=== PATIENT | male | born 1935 | race Caucasian/White ===

== ENCOUNTER 2017-07-08 09:53 | Emergency (ER) | payer MEDICARE, OTHER, SELFPAY ==
[2017-07-08 09:54] VITALS: BP 140/83; PULSE 70; RESP 16; TEMP 36.5; O2SAT 99; BMI 22.3
[2017-07-08 10:13] VITALS: BP 157/90; PULSE 74; RESP 16; O2SAT 97; O2SAT 98
--- NOTE | 2017-07-08 10:13 | RAD_ITS ---
STUDY: X-RAY CHEST REASON FOR EXAM: Male, 82 years old. Chest pain. Shortness of breath. TECHNIQUE: Single frontal view of the chest. COMPARISON: None. FINDINGS: The lungs are hyperexpanded and there are bullous changes compatible with COPD. There is no demonstrated pleural abnormality. There is borderline cardiomegaly. Normal mediastinum and froylan. Normal visualized pulmonary arteries. Normal visualized aortic arch and descending thoracic aorta. Normal visualized thoracic spine. Normal visualized ribs, clavicles, and shoulders. There is no demonstrated abnormality of the visualized soft tissue structures of the upper abdomen. RAD/Chest 1 View (Portable) IMPRESSION: Borderline cardiomegaly with hyperexpansion and bullous change compatible with COPD. No acute pathology. Electronically Signed: Antwon Jones MD at 10:44 EDT , Service support ,
--- NOTE | 2017-07-08 10:13 | EKG12_ITS ---
Test Reason : WEAKNESS Blood Pressure : / mmHG Vent. Rate : 068 BPM Atrial Rate : 068 BPM P-R Int : 178 ms QRS Dur : 080 ms QT Int : 414 ms P-R-T Axes : 072 040 061 degrees QTc Int : 440 ms Sinus rhythm with Premature supraventricular complexes Otherwise normal ECG Confirmed by IGLESIA COX, BEATRICE ([id number]), photographic editor KAROLYN DELONG ([id number] on 07/10/2017 2:10:39 PM Referred By: YANNICK Confirmed By:BEATRICE PAREKH MD
--- NOTE | 2017-07-08 10:18 | NURSING ---
NO OLD EKGS
[2017-07-08 10:34] LABS: Absolute Neutrophil Count 3.7 X10^3/uL (2.0-7.7); Basophil# 0.02 X10^3/uL; Basophil% 0.3 % (0-1); Eosinophil# 0.24 X10^3/uL; Eosinophils% 3.7 % (0-5); Hematocrit 40.8 % (40-54); Hemoglobin 13.6 g/dl (13.0-16.5); Lymphocyte % 18.6 % (19-41); Mean Corp Hgb Conc 33.3 g/gl (32-36); Mean Corpuscular Hgb 32.2 pg (27.0-32.0); Mean Corpuscular Volume 96.5 fL (80-94); Mean Platelet Vol. 10.2 fl (6.2-12.0); Monocyte# 1.25 X10^3/uL; Monocyte% 19.3 % (0-10); Neutrophil # 3.74 X10^3/uL (2.7-7.7); Neutrophil % 57.9 % (47-70); Platelet Count 155 K/mm3 (150-450); RBC Distribution Width CV 13.6 % (11.6-14.6); RBC Distribution Width SD 47.2 fl (35.1-43.9); Red Blood Count 4.23 M/mm3 (4.6-6.2); White Blood Count 6.5 K/mm3 (4.4-11.0)
[2017-07-08 10:35] LABS: POSITIVE COUNT NO; POSITIVE DIFFERENTIAL NO; POSITIVE MORPHOLOGY NO
[2017-07-08 10:37] LABS: International Normalized Ratio 3.2; Prothrombin Time (Protime)PT. 33.3 SECONDS (11.7-14.9)
[2017-07-08 10:38] LABS: Partial Thromboplast Time 47.3 Seconds (24.1-36.2)
[2017-07-08 10:40] LABS: Anion Gap 4 (5-15); BUN 15 mg/dL (7-18); BUN/Creat Ratio 11.5 RATIO (10-20); Calcium,Total 8.8 mg/dL (8.5-10.1); Chloride 107 mmol/L (98-107); Creatinine, Serum 1.31 mg/dL (0.70-1.30); EST Glomerular Filtration Rate 56 mL/min (>60); Est Glom Filt Rate - Afr Amer 68 mL/min (>60); Glucose 100 mg/dL (74-106); Potassium 4.1 mmol/L (3.5-5.1); Sodium Level 141 mmol/L (136-145)
[2017-07-08 12:53] VITALS: BP 157/90; PULSE 73; RESP 16; O2SAT 98
[2017-07-08 13:04] LABS: Bacteria 0 SEEN /hpf (None Seen); Mucous, Urine 0 SEEN /hpf (<or=2+); Red Blood Cells-Urine 0 SEEN /hpf (0-5); White Blood Cells 0 SEEN /hpf (0-5)
[2017-07-08 13:05] LABS: Color, Urine Yellow (Yellow); Glucose, Dipstick Normal (Normal); Ketone-Dipstick Negative (Negative); Leukocyte Esterase-Dipstick Negative /ul (Negative); Nitrite-Dipstick Negative (Negative); Occult Blood-Urine Negative /ul (Negative); Protein-Dipstick Negative (Negative); Specific Gravity, Urine 1.005 (1.002-1.030); Urine Bilirubin Dipstick Negative (Negative); Urine Clarity Clear (Clear); Urine Urobilinogen Normal (Normal)
[2017-07-08 13:21] LABS: Squamous Epithelial Cells - UA 0-5 SEEN /hpf (0-5)
--- NOTE | 2017-07-08 13:30 | ED.VISSUMM ---
- ER Visit Summary Date of Service: 07/08/17 Chief Complaint: Weakness History of Present Illness: The patient is a 82 M presenting for evaluation secondary to weakness. Patient states that over the course of the last 2 weeks he has been feeling generally weak. He states that he has an underlying history of COPD and smoking and typically has exertional dyspnea at baseline, but feels that is getting mildly worse. Patient states that he has been having some intermittent heart palpitations. He also states that he has been feeling intermittently lightheaded. He denies any fevers chest pain cough nausea vomiting diarrhea or urinary symptoms. He denies any laterality to his weakness. Denies any visual changes or numbness. Review of systems otherwise negative. Physical Examination: Vital signs are within normal limits, patient is afebrile. General: Patient is well-nourished well-developed and in no acute distress. Head: Normocephalic, atraumatic Eyes: Pupils equal round and reactive bilaterally, extra occular motion intact bialterally ENT: Moist mucous membranes Neck: Supple, no lymphadenopathy, no JVD, no meningismus CVS: Heart regular rate and rhythm, radial pulses 2+ bilaterally Resp: Respirations nondistressed, lung sounds clear bilaterally Abdomen: Soft, nontender, nondistended, no palpable masses, normal bowel sounds Back: Nontender Extremities: Nontender, atraumatic, active full range of motion, mild peripheral edema noted in the legs right being greater than the left, +1. Skin: warm, no rashes, no petechia Neuro: Alert and oriented x 4, CN 2-12 intact, no lateralizing neurological defecits, NIH stroke scale is 0 Psyc: Normal affect Test Results: Sinus rhythm at [address] segments, normal T waves, normal intervals. Occasional PACs noted. No evidence of acute ischemia or arrhythmia. CBC unremarkable, chemistry shows creatinine 1.3, INR mildly supratherapeutic at 3.2, urinalysis negative, chest x-ray per radiology shows emphysematous changes. Emergency Department Course and Treatment: Patient presented for evaluation secondary to generalized weakness, palpitations, and mild exertional dyspnea. Patient's workup was found to be negative as noted above. This point I do not see any need for the patient to be admitted to the hospital. I did contact patient's primary care physician to ensure close follow-up. Patient was comfortable with this disposition and he was discharged. Disposition: Discharge Impression: 1. Generalized weakness This note was generated with [employer] dictation software. It may contain incorrect words, spelling, and punctuation that were not noted in review of the chart prior to signing ED Disposition - Plan for ED Patient: Disposition: Home or Assisted Living Chief Complaint: Weakness Diagnosis: Generalized weakness Instructions: ED Weakness [facility] Referrals: Emma Meredith MD [Primary Care Provider] - 3-5 Days
[2017-07-08 13:45] VITALS: BP 155/80; PULSE 74; RESP 20; O2SAT 95
== END 2017-07-08 13:46 | disposition home or self-care (01) ==
PROVIDERS: Emergency Provider Emergency Medicine; Family Provider Internal Medicine; PCP Internal Medicine
DX: R53.1 Weakness (principal); R42 Dizziness and giddiness; R60.0 Localized edema; I49.3 Ventricular premature depolarization; J44.9 Chronic obstructive pulmonary disease, unspecified; I25.10 Atherosclerotic heart disease of native coronary artery without angina pectoris; I10 Essential (primary) hypertension; E78.00 Pure hypercholesterolemia, unspecified; Z79.01 Long term (current) use of anticoagulants; Z79.899 Other long term (current) drug therapy; F17.200 Nicotine dependence, unspecified, uncomplicated
CPT/HCPCS: 71045; 80048; 81001; 84484; 85025; 85610; 85730; 93005; 99284; A4216

== ENCOUNTER → 2018-06-25 | Outpatient (CLI) | payer MEDICARE, OTHER, SELFPAY ==
[2018-06-25 13:51] LABS: International Normalized Ratio 2.2; Prothrombin Time (Protime)PT. 24.4 SECONDS (11.7-14.9)
== END | disposition home or self-care (01) ==
LOC: LABSPEC 13:14
PROVIDERS: Family Provider Internal Medicine; PCP Internal Medicine; Referring Provider Physician Assistant; Visit Provider Physician Assistant
DX: I48.2 Chronic atrial fibrillation (principal); Z79.01 Long term (current) use of anticoagulants
CPT/HCPCS: 85610

== ENCOUNTER → 2018-12-29 11:53 | Outpatient (CLI) | payer MEDICARE, OTHER, SELFPAY ==
[2018-12-29 12:13] LABS: International Normalized Ratio 2.5; Prothrombin Time (Protime)PT. 26.9 SECONDS (11.7-14.9)
== END ==
PROVIDERS: Family Provider Internal Medicine; PCP Internal Medicine; Visit Provider Family Medicine
DX: I48.20 Chronic atrial fibrillation, unspecified (principal)
CPT/HCPCS: 85610

== ENCOUNTER → 2019-02-17 14:53 | Outpatient (CLI) | payer MEDICARE, OTHER, SELFPAY ==
[2019-02-17 15:15] LABS: International Normalized Ratio 2.6; Prothrombin Time (Protime)PT. 27.8 SECONDS (11.7-14.9)
== END ==
PROVIDERS: Family Provider Internal Medicine; PCP Internal Medicine; Referring Provider Family Medicine; Visit Provider Family Medicine
DX: I48.20 Chronic atrial fibrillation, unspecified (principal)
CPT/HCPCS: 85610

== ENCOUNTER → 2019-07-01 | Outpatient (CLI) | payer MEDICARE, OTHER, SELFPAY ==
[2019-07-01 10:15] LABS: International Normalized Ratio 3.1; Prothrombin Time (Protime)PT. 31.7 SECONDS (11.7-14.9)
== END | disposition home or self-care (01) ==
LOC: LABSPEC 09:58
PROVIDERS: PCP Internal Medicine; Referring Provider Family Medicine; Visit Provider Family Medicine
DX: I48.20 Chronic atrial fibrillation, unspecified (principal)
CPT/HCPCS: 85610

== ENCOUNTER → 2019-07-08 | Outpatient (CLI) | payer MEDICARE, OTHER, SELFPAY ==
[2019-07-08 09:16] LABS: International Normalized Ratio 1.9; Prothrombin Time (Protime)PT. 21.4 SECONDS (11.7-14.9)
== END | disposition home or self-care (01) ==
PROVIDERS: Visit Provider Family Medicine
DX: I48.20 Chronic atrial fibrillation, unspecified (principal)
CPT/HCPCS: 85610

== ENCOUNTER → 2019-11-04 | Outpatient (CLI) | payer MEDICARE, OTHER, SELFPAY ==
[2019-11-04 15:52] LABS: International Normalized Ratio 2.2; Prothrombin Time (Protime)PT. 23.6 SECONDS (11.7-14.9)
== END | disposition home or self-care (01) ==
LOC: LABSPEC 15:27
PROVIDERS: PCP Physician Assistant; Referring Provider Physician Assistant; Visit Provider Physician Assistant
DX: I48.20 Chronic atrial fibrillation, unspecified (principal)
CPT/HCPCS: 85610

== ENCOUNTER → 2019-11-25 | Outpatient (CLI) | payer MEDICARE, OTHER, SELFPAY ==
[2019-11-25 14:21] LABS: International Normalized Ratio 1.9; Prothrombin Time (Protime)PT. 21.3 SECONDS (11.7-14.9)
== END | disposition home or self-care (01) ==
LOC: LABSPEC 13:47
PROVIDERS: PCP Physician Assistant; Referring Provider Physician Assistant; Visit Provider Physician Assistant
DX: I48.20 Chronic atrial fibrillation, unspecified (principal)
CPT/HCPCS: 85610

== ENCOUNTER → 2020-03-08 | Outpatient (CLI) | payer MEDICARE, OTHER, SELFPAY ==
[2020-03-08 12:51] LABS: International Normalized Ratio 1.4; Prothrombin Time (Protime)PT. 17.1 SECONDS (11.7-14.9)
== END | disposition home or self-care (01) ==
LOC: LABSPEC 12:10
PROVIDERS: PCP Physician Assistant; Referring Provider Physician Assistant; Visit Provider Physician Assistant
DX: I48.20 Chronic atrial fibrillation, unspecified (principal)
CPT/HCPCS: 85610

== ENCOUNTER → 2020-04-07 | Outpatient (CLI) | payer MEDICARE, OTHER, SELFPAY ==
[2020-04-07 10:39] LABS: International Normalized Ratio 1.6; Prothrombin Time (Protime)PT. 18.3 SECONDS (11.7-14.9)
== END | disposition home or self-care (01) ==
LOC: LABSPEC 10:21
PROVIDERS: PCP Physician Assistant; Visit Provider Physician Assistant
DX: I48.20 Chronic atrial fibrillation, unspecified (principal)
CPT/HCPCS: 85610

== ENCOUNTER → 2020-04-15 | Outpatient (CLI) | payer MEDICARE, OTHER, SELFPAY ==
[2020-04-15 14:16] LABS: International Normalized Ratio 2.3; Prothrombin Time (Protime)PT. 24.6 SECONDS (11.7-14.9)
== END | disposition home or self-care (01) ==
LOC: LABSPEC 13:46
PROVIDERS: PCP Physician Assistant; Referring Provider Physician Assistant; Visit Provider Physician Assistant
DX: I48.20 Chronic atrial fibrillation, unspecified (principal)
CPT/HCPCS: 85610

== ENCOUNTER → 2020-07-13 13:26 | Outpatient (CLI) | payer MEDICARE, OTHER, SELFPAY ==
[2020-07-13 13:48] LABS: International Normalized Ratio 2.6
== END ==
PROVIDERS: PCP Physician Assistant; Visit Provider Registered Nurse
DX: I48.20 Chronic atrial fibrillation, unspecified (principal)
CPT/HCPCS: 85610

== ENCOUNTER → 2020-08-24 | Outpatient (CLI) | payer MEDICARE, OTHER, SELFPAY ==
[2020-08-24 11:42] LABS: Prothrombin Time (Protime)PT. 42.6 SECONDS (11.7-14.9)
[2020-08-24 11:55] LABS: International Normalized Ratio 4.6
== END | disposition home or self-care (01) ==
LOC: LABSPEC 11:22
PROVIDERS: PCP Physician Assistant; Visit Provider Physician Assistant
DX: I48.20 Chronic atrial fibrillation, unspecified (principal)
CPT/HCPCS: 85610

== ENCOUNTER → 2020-09-02 | Outpatient (CLI) | payer MEDICARE, OTHER, SELFPAY ==
[2020-09-02 16:31] LABS: International Normalized Ratio 3.4; Prothrombin Time (Protime)PT. 33.1 SECONDS (11.7-14.9)
== END | disposition home or self-care (01) ==
LOC: LABSPEC 15:38
PROVIDERS: PCP Physician Assistant; Visit Provider Physician Assistant
DX: I48.20 Chronic atrial fibrillation, unspecified (principal)
CPT/HCPCS: 85610

== ENCOUNTER → 2020-09-29 | Outpatient (CLI) | payer MEDICARE, OTHER, SELFPAY ==
[2020-09-29 12:23] LABS: International Normalized Ratio 3.1; Prothrombin Time (Protime)PT. 31.5 SECONDS (11.7-14.9)
== END | disposition home or self-care (01) ==
LOC: LABSPEC 12:07
PROVIDERS: PCP Physician Assistant; Visit Provider Physician Assistant
DX: I48.20 Chronic atrial fibrillation, unspecified (principal)
CPT/HCPCS: 85610

== ENCOUNTER → 2020-10-20 | Outpatient (CLI) | payer MEDICARE, OTHER, SELFPAY ==
[2020-10-20 12:38] LABS: International Normalized Ratio 2.7; Prothrombin Time (Protime)PT. 27.8 SECONDS (11.7-14.9)
== END | disposition home or self-care (01) ==
LOC: LABSPEC 12:24
PROVIDERS: PCP Physician Assistant; Visit Provider Registered Nurse
DX: I48.20 Chronic atrial fibrillation, unspecified (principal)
CPT/HCPCS: 85610

== ENCOUNTER 2021-10-20 12:58 | Outpatient (CLI) | payer MEDICARE, OTHER, SELFPAY ==
[2021-10-20 13:08] LABS: International Normalized Ratio 2.1
== END 2021-10-20 23:59 | disposition home or self-care (01) ==
PROVIDERS: PCP Physician Assistant; Visit Provider Family Medicine
DX: I48.0 Paroxysmal atrial fibrillation (principal)
CPT/HCPCS: 85610